=== PATIENT | female | born 1990 | race Caucasian/White ===

== ENCOUNTER 2018-04-30 06:24 | Outpatient (CLI) | payer OTHER ==
[2018-04-30 06:52] LABS: BASOPHILS % (AUTO) 0.5 % (0-1); EOSINOPHILS # (AUTO) 0.2 X10'3 (0-0.9); EOSINOPHILS % (AUTO) 2.4 % (0-6); HEMATOCRIT 42.8 % (35.0-45.0); HEMOGLOBIN 14.3 g/dl (12.0-16.0); LYMPHOCYTES # (AUTO) 2.2 X10'3 (1.1-4.8); LYMPHOCYTES % (AUTO) 32.6 % (21-51); MEAN CORPUSCULAR HEMOGLOBIN 29.2 PG (27.0-31.0); MEAN CORPUSCULAR HGB CONC 33.4 g/dL (33.0-36.5); MEAN CORPUSCULAR VOLUME 87.6 FL (78-98); MEAN PLATELET VOLUME 8.1 FL (7.4-10.4); MONOCYTES # (AUTO) 0.6 X10'3 (0-0.9); MONOCYTES % (AUTO) 8.3 % (2-12); NEUTROPHILS # (AUTO) 3.9 X10'3 (1.8-7.7); NEUTROPHILS % (AUTO) 56.2 % (42-75); PLATELET COUNT 282 X10'3 (140-440); RED BLOOD COUNT 4.89 X10'6 (4.20-5.60); RED CELL DISTRIBUTION WIDTH 13.1 % (11.5-14.5); WHITE BLOOD COUNT 6.9 X10'3 (4.5-11.0)
[2018-04-30 07:06] LABS: CLARITY,URINE CLEAR (Clear); COLOR,URINE YELLOW (Yellow); GLUCOSE, URINE NEGATIVE (Neg); KETONES,URINE NEGATIVE (Neg); LEUKOCYTE ESTERASE ,URINE NEGATIVE (Neg); NITRITES, URINE NEGATIVE (Neg); OCCULT BLOOD,URINE NEGATIVE (Neg); PROTEIN,URINE NEGATIVE (Neg); UROBILINOGEN,URINE 0.2 E.U/dL (0.2-1.0)
[2018-04-30 07:17] LABS: ALANINE AMINOTRANSFERASE 16 U/L (12-78); ALBUMIN 3.9 G/DL (3.4-5.0); ALBUMIN/GLOBULIN RATIO 1.1 (1.1-1.5); ALKALINE PHOSPHATASE 72 IU/L (46-116); ANION GAP 7 (8-16); ASPARTATE AMINO TRANSFERASE 10 U/L (10-37); BILIRUBIN,TOTAL 0.4 MG/DL (0.1-1.0); BLOOD UREA NITROGEN 21 MG/DL (7-18); BUN/CREATININE RATIO 22.8 (6.6-38.0); CALCIUM 9.1 MG/DL (8.5-10.1); CHLORIDE 108 MMOL/L (99-107); CHOL/HDL RATIO 2.8 (0.00-4.99); CHOLESTEROL 181 MG/DL (0-200); CREATININE 0.92 MG/DL (0.40-0.90); GLUCOSE 86 MG/DL (70-104); HDL CHOLESTEROL 65 MG/DL (35-60); LDL CHOLESTEROL 108 MG/DL (50-100); POTASSIUM 3.9 MMOL/L (3.5-5.1); SODIUM 142 MMOL/L (135-145); TOTAL CARBON DIOXIDE 27.1 MMOL/L (24-32); TOTAL PROTEIN 7.3 G/DL (6.4-8.2); TRIGLYCERIDES 51 MG/DL (20-135); eGFR 73 ML/MIN
[2018-04-30 07:18] LABS: UA COLLECTION TYPE NON-SPECIFIED
== END 2018-04-30 23:59 | disposition home or self-care (01) ==
LOC: LAB 06:24
PROVIDERS: ATTEND Family Medicine
DX: R53.83 Other fatigue (principal); F32.9 Major depressive disorder, single episode, unspecified; Z76.89 Persons encountering health services in other specified circumstances
CPT/HCPCS: 36415; 80053; 80061; 81003; 84436; 84443; 85025

== ENCOUNTER 2018-10-06 11:46 | Emergency (ER) | payer OTHER ==
[~2018-10-06] VITALS: Ht 157.5 cm; Wt 84.3 kg
[2018-10-06 11:57] VITALS: BP 118/73
[2018-10-06] MEDS ORDERED: ONDA4TAB12 PO (12:33)
[2018-10-06] MEDS ORDERED: ondansetron 4mg rapidly disintigrating tab PO ONE (12:35)
== END 2018-10-06 13:14 | disposition home or self-care (01) ==
LOC: ER 11:46
DX: R11.2 Nausea with vomiting, unspecified (principal); Z88.5 Allergy status to narcotic agent; Z79.899 Other long term (current) drug therapy
CPT/HCPCS: 99283; J2405

== ENCOUNTER 2018-12-01 12:21 | Outpatient (CLI) | payer OTHER ==
[~2018-12-01 12:21] MED LIST: ONDA4TAB12 PO
[2018-12-01 14:29] LABS: C-REACTIVE PROTEIN 0.07 MG/DL (0.0-0.5)
[2018-12-01 14:42] LABS: RHEUM FACTOR QUAL REFLEX TITER NEGATIVE (Neg)
== END 2018-12-01 23:59 | disposition home or self-care (01) ==
LOC: RAD 12:21
PROVIDERS: ATTEND Family Medicine
DX: M25.461 Effusion, right knee (principal); M25.462 Effusion, left knee
CPT/HCPCS: 36415; 73564; 85651; 86038; 86140; 86430

== ENCOUNTER 2018-12-26 12:48 | Outpatient (CLI) | payer OTHER | END 2018-12-26 23:59 | disposition home or self-care (01) | LOC: RAD 12:48 | PROVIDERS: ATTEND Family Medicine | DX: M25.561 Pain in right knee (principal); M25.562 Pain in left knee; M53.3 Sacrococcygeal disorders, not elsewhere classified; M25.552 Pain in left hip; M25.551 Pain in right hip; M41.86 Other forms of scoliosis, lumbar region; M51.37 Other intervertebral disc degeneration, lumbosacral region; M25.462 Effusion, left knee | CPT/HCPCS: 72148; 72200; 73521; 73721 ==

== ENCOUNTER 2019-01-20 11:03 | Emergency (ER) | payer OTHER ==
[~2019-01-20] VITALS: Ht 157.5 cm; Wt 79.5 kg
[2019-01-20] MEDS ORDERED: SUMAtriptan succ. 6 MG/0.5ml vial SQ ONE ×2 (11:10→11:20)
[2019-01-20] MEDS ORDERED: dexamethasone sod phosphate 10mg/ml inj IV STA (11:10)
[2019-01-20] MEDS ORDERED: ketorolac tromethamine 15mg/ml inj. IV ONE (11:10)
[2019-01-20] MEDS ORDERED: proCHLORperazine 10 MG/2 ml inj IV ONE (11:10)
[2019-01-20] MEDS ORDERED: normal saline 1000ML IV soln IVB ONE (11:10)
[2019-01-20 11:17] VITALS: BP 136/82
[2019-01-20] MEDS ORDERED: proCHLORperazine 10mg tablet PO ONE (11:20)
[2019-01-20] MEDS ORDERED: PROC5TAB56 PO (11:22)
[2019-01-20] MEDS ORDERED: SUMA25TA35 PO (11:22)
== END 2019-01-20 12:28 | disposition home or self-care (01) ==
LOC: ER 11:04
DX: G43.909 Migraine, unspecified, not intractable, without status migrainosus (principal); Z88.5 Allergy status to narcotic agent; Z79.899 Other long term (current) drug therapy
CPT/HCPCS: 96372; 99283; J3030; Q0164

== ENCOUNTER 2019-07-05 13:24 | Outpatient (CLI) | payer OTHER ==
[~2019-07-05 13:24] MED LIST changes: +PROC5TAB56 PO; +SUMA25TA35 PO
[2019-07-05 14:15] LABS: CLARITY,URINE CLEAR (Clear); COLOR,URINE YELLOW (Yellow); GLUCOSE, URINE NEGATIVE (Neg); KETONES,URINE NEGATIVE (Neg); LEUKOCYTE ESTERASE ,URINE NEGATIVE (Neg); NITRITES, URINE NEGATIVE (Neg); OCCULT BLOOD,URINE NEGATIVE (Neg); PH,URINE 6.5 (4.8-8.0); PROTEIN,URINE NEGATIVE (Neg); UROBILINOGEN,URINE 0.2 E.U/dL (0.2-1.0)
[2019-07-05 14:18] LABS: BASOPHILS # (AUTO) 0.1 X10'3 (0-0.2); BASOPHILS % (AUTO) 0.9 % (0-1); EOSINOPHILS # (AUTO) 0.1 X10'3 (0-0.9); HEMOGLOBIN 13.8 g/dl (12.0-16.0); LYMPHOCYTES # (AUTO) 2.1 X10'3 (1.1-4.8); LYMPHOCYTES % (AUTO) 31.9 % (21-51); MEAN CORPUSCULAR HEMOGLOBIN 29.7 PG (27.0-31.0); MEAN CORPUSCULAR HGB CONC 33.7 g/dL (33.0-36.5); MEAN CORPUSCULAR VOLUME 88.2 FL (78-98); MEAN PLATELET VOLUME 8.7 FL (7.4-10.4); MONOCYTES # (AUTO) 0.7 X10'3 (0-0.9); MONOCYTES % (AUTO) 9.8 % (2-12); NEUTROPHILS # (AUTO) 3.7 X10'3 (1.8-7.7); NEUTROPHILS % (AUTO) 55.4 % (42-75); PLATELET COUNT 257 X10'3 (140-440); RED BLOOD COUNT 4.65 X10'6 (4.20-5.60); RED CELL DISTRIBUTION WIDTH 13.1 % (11.5-14.5); WHITE BLOOD COUNT 6.7 X10'3 (4.5-11.0)
[2019-07-05 14:28] LABS: UA COLLECTION TYPE CLN CATCH MIDSTREAM
[2019-07-05 14:44] LABS: ALANINE AMINOTRANSFERASE 14 U/L (12-78); ALBUMIN/GLOBULIN RATIO 1.3 (1.1-1.5); ALKALINE PHOSPHATASE 58 IU/L (46-116); ANION GAP 9 (8-16); ASPARTATE AMINO TRANSFERASE 17 U/L (10-37); BILIRUBIN,TOTAL 0.6 MG/DL (0.1-1.0); BLOOD UREA NITROGEN 11 MG/DL (7-18); BUN/CREATININE RATIO 11.3 (6.6-38.0); CALCIUM 8.8 MG/DL (8.5-10.1); CHLORIDE 105 MMOL/L (99-107); CHOL/HDL RATIO 2.8 (0.00-4.99); CHOLESTEROL 186 MG/DL (0-200); CREATININE 0.97 MG/DL (0.40-0.90); GLUCOSE 80 MG/DL (70-104); HDL CHOLESTEROL 66 MG/DL (35-60); LDL CHOLESTEROL 105 MG/DL (50-100); POTASSIUM 3.8 MMOL/L (3.5-5.1); SODIUM 140 MMOL/L (135-145); TOTAL CARBON DIOXIDE 26.4 MMOL/L (24-32); TRIGLYCERIDES 51 MG/DL (20-135); eGFR 68 ML/MIN
== END 2019-07-05 23:59 | disposition home or self-care (01) ==
LOC: LAB 13:24
PROVIDERS: ATTEND Family Medicine
DX: Z00.00 Encounter for general adult medical examination without abnormal findings (principal)
CPT/HCPCS: 36415; 80053; 80061; 81003; 84439; 84443; 85025

== ENCOUNTER 2019-12-18 12:46 | Outpatient (CLI) | payer BC | END 2019-12-18 23:59 | disposition home or self-care (01) | LOC: RAD 12:46 | PROVIDERS: ATTEND Family Medicine | DX: M77.12 Lateral epicondylitis, left elbow (principal) | CPT/HCPCS: 73221 ==

== ENCOUNTER 2020-04-03 13:01 | Day surgery (SDC) | payer BC ==
[2020-03-26 10:26] LABS: BASOPHILS % (AUTO) 0.4 % (0-1); EOSINOPHILS # (AUTO) 0.1 X10'3 (0-0.9); EOSINOPHILS % (AUTO) 1.3 % (0-6); LYMPHOCYTES # (AUTO) 2.2 X10'3 (1.1-4.8); LYMPHOCYTES % (AUTO) 20.3 % (21-51); MEAN CORPUSCULAR HEMOGLOBIN 30.3 PG (27.0-31.0); MEAN CORPUSCULAR HGB CONC 33.5 g/dL (33.0-36.5); MEAN CORPUSCULAR VOLUME 90.3 FL (78-98); MEAN PLATELET VOLUME 8.9 FL (7.4-10.4); MONOCYTES # (AUTO) 0.8 X10'3 (0-0.9); MONOCYTES % (AUTO) 7.1 % (2-12); NEUTROPHILS # (AUTO) 7.6 X10'3 (1.8-7.7); NEUTROPHILS % (AUTO) 70.9 % (42-75); PRE OP HEMOGLOBIN 14.4 g/dL (12.0-16.0); PRE OP PLATELET COUNT 295 X10'3 (140-440); RED BLOOD COUNT 4.76 X10'6 (4.20-5.60); RED CELL DISTRIBUTION WIDTH 12.8 % (11.5-14.5)
[2020-03-26 10:39] LABS: HCG SERUM QL NEGATIVE; PRE OP PROTIME 10.7 SECONDS (9.0-12.0)
[2020-03-26 10:40] LABS: ALBUMIN 4.3 G/DL (3.4-5.0); ALBUMIN/GLOBULIN RATIO 1.3 (1.1-1.5); ALKALINE PHOSPHATASE 58 IU/L (46-116); BLOOD UREA NITROGEN 20 MG/DL (7-18); BUN/CREATININE RATIO 25.3 (6.6-38.0); CALCIUM 9.1 MG/DL (8.5-10.1); CHLORIDE 106 MMOL/L (99-107); CREATININE 0.79 MG/DL (0.40-0.90); PRE OP ALT 22 U/L (30-65); PRE OP ANION GAP 10 (8-16); PRE OP AST 15 U/L (10-37); PRE OP BILIRUB, TOTAL 0.5 MG/DL (0.0-1.0); PRE OP GLUCOSE 83 MG/DL (70-104); PRE OP POTASSIUM 4.1 MMOL/L (3.4-5.1); PRE OP SODIUM 142 MMOL/L (135-145); TOTAL CARBON DIOXIDE 26.1 MMOL/L (24-32); TOTAL PROTEIN 7.6 G/DL (6.4-8.2); eGFR 85 ML/MIN
[2020-04-03] VITALS (13 sets, daily range): BP systolic 103–142; BP diastolic 62–79
[~2020-04-03] VITALS: Ht 157.5 cm; Wt 71.2 kg
[~2020-04-03 13:01] MED LIST changes: +ACET-1008 PO; +IBUP-75 PO; +LIDOcaine 1% (10mg/ml) 2ml vial ONE; +MULT-620 PO; -ONDA4TAB12 PO; -PROC5TAB56 PO; -SUMA25TA35 PO; +ceFAZolin 2gm in dextrose, iso 50 ML IV ONE; +famotidine 20mg tablet PO ONE; +ringers solution, lacted 1,000 ML IV SCH; +vancomycin 1,500 MG in NS 300ml IV soln IV ONE
[2020-04-03] MEDS ORDERED: ceFAZolin 1000mg inj ONE (14:22)
[2020-04-03] MEDS ORDERED: BUPIVAcaine/PF 2.5 mg/ml (0.25%) 30ml vial ONE (14:22)
[2020-04-03] MEDS ORDERED: sevoflurane 250ml liquid IH ONE (14:40)
[2020-04-03] MEDS ORDERED: rocuronium 10mg/ml inj IV ONE (14:40)
[2020-04-03] MEDS ORDERED: ketorolac trometh. 30mg/ml inj. ONE (14:40)
[2020-04-03] MEDS ORDERED: midazolam 2 mg/2 ml injection ONE (14:41)
[2020-04-03] MEDS ORDERED: fentaNYL/PF 50MCG/1 ML 2ML syringe ONE ×2 (14:41→14:55)
[2020-04-03] MEDS ORDERED: ondansetron/PF 4mg/2ml inj IV PRN (14:45)
[2020-04-03] MEDS ORDERED: ringers solution, lacted 1,000 ML IV SCH (14:45)
[2020-04-03] MEDS ORDERED: meperidine/PF 25mg/ml syringe IV PRN ×2 (14:45)
[2020-04-03] MEDS ORDERED: proCHLORperazine 10 MG/2 ml inj IV PRN (14:45)
[2020-04-03] MEDS ORDERED: glycopyrrolate 0.2mg/ml inj ONE (15:46)
[2020-04-03] MEDS ORDERED: propofol inj 20 ML IV ONE (15:46)
[2020-04-03] MEDS ORDERED: dexamethasone sod phosphate 4mg/ml inj. ONE (15:46)
[2020-04-03] MEDS ORDERED: LIDOcaine 2% (20mg/ml) 5ml vial ONE (15:46)
[2020-04-03] MEDS ORDERED: neostigmine methylsulfate 1 MG/ML 10ml vial ONE (15:46)
[2020-04-03] MEDS ORDERED: ondansetron/PF 4mg/2ml inj ONE (15:46)
[2020-04-03] MEDS ORDERED: acetaminophen 1,000mg/100ml IV 100 ML IV ONE (15:55)
[2020-04-03] MEDS ORDERED: ePHEDrine 50MG/ML INJ. ONE (15:55)
[2020-04-03] MEDS ORDERED: meperidine/PF 25mg/ml syringe ONE (15:59)
--- NOTE | 2020-04-03 16:05 | NUR ---
Received from OR via BED, accompanied by Anesthesiologist DR ARMSTRONG-- and report given by Anesthesiolgist. PATIENT A&OX4, C/O PAIN NAUSEA AND CLIMBING OUT OF MED, SEE EMAR FOR MEDS GIVEN, RAILS UP BED DOWN ALARM ON, , V/S WNL, NEUROVASCULAR CHECKS INTACT, 20G PIV RUE, SCD ON, LEFT ARM SPLINT DRESSING CDI IN [place]
[2020-04-03] MEDS: meperidine/PF 25mg/ml syringe IV PRN ×2 (16:19→16:32)
[2020-04-03] MEDS ORDERED: HYDROcodone/acetaminophen 10/325mg tab PO ONE (16:25)
--- NOTE | 2020-04-03 17:02 | NUR ---
PATIENT UNCOMFORTABLE WITH ABDOMEN CRAMPS NAUSEA AND PAIN WHICH ALL THREE COME AND GO, SEE EMAR FOR MEDS GIVEN, SALTINES GIVEN, WATER TRIED, REPOSITIONING WELL, SHE IS REFUSING SPRITE.
--- NOTE | 2020-04-03 17:35 | NUR ---
PATIENT A&OX4, C/O PAIN NAUSEA RESOLVED WELL ABDOMEN CRAMPS, V/S WNL, NEUROVASCULAR CHECKS INTACT, 20G PIV RUE D/C, SCD OFF, LEFT ARM SPLINT DRESSING CDI IN [place]. I HAVE REVIEWED D/C INSTRUCTIONS WITH PATIENT AND FAMILY AND THEY HAVE VERBALIZED UNDERSTANDING. PATIENT D/C HOME SCRIPT FOR PAIN WITH ALL BELONGINGS AND FRIENDS GAVE TRANSPORT HOME.
== END 2020-04-03 17:35 | disposition home or self-care (01) ==
LOC: PRE-OP 13:01 → PAS 17:35
PROVIDERS: ATTEND Orthopaedic Surgery
DX: M77.12 Lateral epicondylitis, left elbow (principal); E03.9 Hypothyroidism, unspecified; Z98.890 Other specified postprocedural states; Z88.5 Allergy status to narcotic agent; Z79.899 Other long term (current) drug therapy; Z79.01 Long term (current) use of anticoagulants; Z20.822 Contact with and (suspected) exposure to COVID-19
CPT/HCPCS: 24359; 36415; 80053; 82948; 84703; 85025; 85610; 85730; 87635; A6223; C1713; J0131; J0690; J0780; J1100; J1885; J2001; J2175; J2250; J2405; J2704; J2710; J3010; J3370; J3490; J7040; A4215; A4618; A6449; A7000; J7120

== ENCOUNTER 2020-11-04 07:45 | Outpatient (CLI) | payer BC ==
[~2020-11-04 07:45] MED LIST changes: -LIDOcaine 1% (10mg/ml) 2ml vial ONE; -ceFAZolin 2gm in dextrose, iso 50 ML IV ONE; -famotidine 20mg tablet PO ONE; -ringers solution, lacted 1,000 ML IV SCH; -vancomycin 1,500 MG in NS 300ml IV soln IV ONE
[2020-11-04 08:34] LABS: BASOPHILS % (AUTO) 0.7 % (0-1); EOSINOPHILS # (AUTO) 0.1 X10'3 (0-0.9); EOSINOPHILS % (AUTO) 1.9 % (0-6); HEMATOCRIT 41.7 % (35.0-45.0); LYMPHOCYTES # (AUTO) 1.8 X10'3 (1.1-4.8); LYMPHOCYTES % (AUTO) 29.4 % (21-51); MEAN CORPUSCULAR HEMOGLOBIN 30.5 PG (27.0-31.0); MEAN CORPUSCULAR HGB CONC 33.6 g/dL (33.0-36.5); MEAN CORPUSCULAR VOLUME 90.9 FL (78-98); MEAN PLATELET VOLUME 8.4 FL (7.4-10.4); MONOCYTES # (AUTO) 0.5 X10'3 (0-0.9); MONOCYTES % (AUTO) 8.8 % (2-12); NEUTROPHILS # (AUTO) 3.6 X10'3 (1.8-7.7); NEUTROPHILS % (AUTO) 59.2 % (42-75); PLATELET COUNT 253 X10'3 (140-440); RED BLOOD COUNT 4.59 X10'6 (4.20-5.60); RED CELL DISTRIBUTION WIDTH 12.6 % (11.5-14.5); WHITE BLOOD COUNT 6.1 X10'3 (4.5-11.0)
[2020-11-04 08:57] LABS: ALANINE AMINOTRANSFERASE 17 U/L (12-78); ALBUMIN 4.1 G/DL (3.4-5.0); ALBUMIN/GLOBULIN RATIO 1.2 (1.1-1.5); ALKALINE PHOSPHATASE 74 IU/L (46-116); ANION GAP 11 (8-16); ASPARTATE AMINO TRANSFERASE 13 U/L (10-37); BILIRUBIN,TOTAL 0.4 MG/DL (0.1-1.0); BLOOD UREA NITROGEN 16 MG/DL (7-18); BUN/CREATININE RATIO 16.7 (6.6-38.0); CALCIUM 8.5 MG/DL (8.5-10.1); CHLORIDE 107 MMOL/L (99-107); CHOL/HDL RATIO 2.7 (0.00-4.99); CHOLESTEROL 200 MG/DL (0-200); CREATININE 0.96 MG/DL (0.40-0.90); GLUCOSE 83 MG/DL (70-104); HDL CHOLESTEROL 73 MG/DL (35-60); LDL CHOLESTEROL 108 MG/DL (50-100); POTASSIUM 3.7 MMOL/L (3.5-5.1); SODIUM 144 MMOL/L (135-145); TOTAL CARBON DIOXIDE 26.5 MMOL/L (24-32); TOTAL PROTEIN 7.4 G/DL (6.4-8.2); TRIGLYCERIDES 89 MG/DL (20-135); eGFR 68 ML/MIN
[2020-11-04 09:47] LABS: UA COLLECTION TYPE CLN CATCH MIDSTREAM
[2020-11-04 09:48] LABS: CLARITY,URINE CLEAR (Clear); COLOR,URINE ORANGE (Yellow)
[2020-11-04 09:54] LABS: SQUAMOUS EPITHELIAL CELL,UR FEW /LPF (FEW)
[2020-11-04 09:55] LABS: BACTERIA,URINE NONE SEEN /HPF (Neg)
[2020-11-04 09:57] LABS: WBC,URINE 0-4 /HPF (0-4)
[2020-11-06 21:54] LABS: T-TRANSGLUTAMINASE IGA <2 U/mL (0-3)
[2020-11-07 10:57] LABS: ENDOMYSIAL ANTIBODY IGA Negative (Negative)
== END 2020-11-04 23:59 | disposition home or self-care (01) ==
LOC: LAB 07:45
PROVIDERS: ATTEND Family Medicine
DX: Z00.01 Encounter for general adult medical examination with abnormal findings (principal); R10.9 Unspecified abdominal pain; R53.83 Other fatigue
CPT/HCPCS: 36415; 80053; 80061; 81001; 83520; 84439; 84443; 85025; 86255

== ENCOUNTER 2020-11-07 04:33 | Emergency (ER) | payer BC ==
[~2020-11-07] VITALS: Ht 154.9 cm; Wt 68.2 kg
[2020-11-07 05:11] LABS: CLARITY,URINE CLEAR (Clear); COLOR,URINE YELLOW (Yellow); UA COLLECTION TYPE CLN CATCH MIDSTREAM
[2020-11-07 05:12] LABS: GLUCOSE, URINE NEGATIVE (Neg); KETONES,URINE NEGATIVE (Neg); LEUKOCYTE ESTERASE ,URINE NEGATIVE (Neg); NITRITES, URINE NEGATIVE (Neg); OCCULT BLOOD,URINE NEGATIVE (Neg); PROTEIN,URINE NEGATIVE (Neg)
[2020-11-07] MEDS ORDERED: OXYB5TAB29 PO (05:22)
[2020-11-07 05:28] VITALS: BP 103/64
== END 2020-11-07 05:35 | disposition home or self-care (01) ==
LOC: ER 04:34
DX: R30.0 Dysuria (principal); Z88.5 Allergy status to narcotic agent; Z79.899 Other long term (current) drug therapy
CPT/HCPCS: 81003; 99283

== ENCOUNTER 2020-11-26 13:35 | Outpatient (CLI) | payer BC ==
[~2020-11-26 13:35] MED LIST changes: +OXYB5TAB29 PO
== END 2020-11-26 23:59 | disposition home or self-care (01) ==
LOC: RAD 13:35
PROVIDERS: ATTEND Family Medicine
DX: R30.0 Dysuria (principal); R35.0 Frequency of micturition
CPT/HCPCS: 76856; 76857

== ENCOUNTER 2022-01-31 13:51 | Emergency (ER) | payer BC ==
[~2022-01-31] VITALS: Ht 152.4 cm; Wt 65.9 kg
[~2022-01-31 13:51] MED LIST changes: -IBUP-75 PO; +[UNRECOGNIZED DRUG - CODE] PO
[2022-01-31 13:53] VITALS: BP 124/73
[2022-01-31] MEDS ORDERED: AMOX-117 PO (14:12)
== END 2022-01-31 15:19 | disposition home or self-care (01) ==
LOC: ER 13:51
DX: J06.9 Acute upper respiratory infection, unspecified (principal); Z20.822 Contact with and (suspected) exposure to COVID-19; J02.9 Acute pharyngitis, unspecified; Z88.5 Allergy status to narcotic agent; Z79.2 Long term (current) use of antibiotics; Z79.899 Other long term (current) drug therapy
CPT/HCPCS: 87081; 87502; 87503; 87880; 99283

== ENCOUNTER 2022-03-03 08:27 | Outpatient (CLI) | payer BC | END 2022-03-03 23:59 | disposition home or self-care (01) | LOC: LAB 08:27 | PROVIDERS: ATTEND Family Medicine | DX: R06.89 Other abnormalities of breathing (principal) | CPT/HCPCS: 71046 ==

== ENCOUNTER 2022-04-08 08:39 | Outpatient (CLI) | payer BC ==
[~2022-04-08 08:39] MED LIST changes: +IBUP-2632 PO; -[UNRECOGNIZED DRUG - CODE] PO
[2022-04-09 09:07] LABS: ESTRADIOL 89.9 pg/mL (.); PROGESTERONE 4.6 ng/mL (.)
[2022-04-12 14:57] LABS: ESTRONE, SERUM 81 pg/mL (27-231)
[2022-04-16 08:43] LABS: TESTOSTERONE, FREE, DIRECT 0.8 pg/mL (0.0-4.2)
== END 2022-04-08 23:59 | disposition home or self-care (01) ==
LOC: LAB 08:39
PROVIDERS: ATTEND Nurse Practitioner
DX: R63.5 Abnormal weight gain (principal); R05.9 Cough, unspecified
CPT/HCPCS: 36415; 82670; 82679; 84144; 84402; 84403

== ENCOUNTER 2022-06-14 06:55 | Emergency (ER) | payer BC ==
[~2022-06-14] VITALS: Ht 154.9 cm; Wt 72.7 kg
[2022-06-14 07:02] VITALS: BP 104/61
[2022-06-14] MEDS ORDERED: ketorolac trometh. 30mg/ml inj. IM ONE (07:10)
[2022-06-14] MEDS ORDERED: LIDOcaine 5% patch TP STA (07:20)
== END 2022-06-14 07:39 | disposition home or self-care (01) ==
LOC: ER 06:55
DX: S29.012A Strain of muscle and tendon of back wall of thorax, initial encounter (principal); G43.909 Migraine, unspecified, not intractable, without status migrainosus; Z88.5 Allergy status to narcotic agent; Z79.899 Other long term (current) drug therapy; X58.XXXA Exposure to other specified factors, initial encounter; Y93.89 Activity, other specified; Y92.89 Other specified places as the place of occurrence of the external cause; Y99.8 Other external cause status
CPT/HCPCS: 96372; 99283; J1885